=== PATIENT | female | born 1980 | race Caucasian/White ===

== ENCOUNTER 2021-10-15 11:00 | Outpatient (CLI) | payer BC | END 2021-10-15 12:00 | disposition home or self-care (01) | LOC: CSHCP 11:00 | PROVIDERS: ATTEND Nurse Practitioner Adult Health | DX: R06.02 Shortness of breath (principal); R94.2 Abnormal results of pulmonary function studies | CPT/HCPCS: 94060; 94726; 94729; 94760 ==

== ENCOUNTER 2023-04-08 12:36 | Outpatient (CLI) | payer BC | END 2023-04-08 12:37 | disposition home or self-care (01) | LOC: CSHMAMMO 12:36 | PROVIDERS: ATTEND Internal Medicine | DX: Z12.31 Encounter for screening mammogram for malignant neoplasm of breast (principal) | CPT/HCPCS: 77063; 77067 ==

== ENCOUNTER 2023-08-11 09:03 | Outpatient (CLI) | payer BC | END 2023-08-11 09:04 | disposition home or self-care (01) | LOC: CSHRAD 09:03 | PROVIDERS: ATTEND Internal Medicine | DX: M79.671 Pain in right foot (principal) ==